=== PATIENT | female | born 1960 | race Caucasian/White ===

== ENCOUNTER → 2016-05-23 | Outpatient (CLI) | payer OTHER | END | disposition home or self-care (01) | LOC: C.PAPS 10:32 | PROVIDERS: ATTEND Obstetrics & Gynecology | DX: Z12.4 Encounter for screening for malignant neoplasm of cervix (principal) ==

== ENCOUNTER → 2016-09-25 | Outpatient (CLI) | payer OTHER ==
--- NOTE | 2016-09-25 11:37 | DIAGNOSTIC IMAGING REPORT ---
PELVIC ULTRASOUND, TRANSABDOMINAL AND TRANSVAGINAL HISTORY: N91.2 Amenorrhea [id number] COMPARISON: None. FINDINGS: Uterus: 9.1 x 5.1 x 4.5 cm. A few nabothian cysts. Endometrial stripe: Measures between 6 and 7 mm in thickness. Right ovary: Obscured by overlying bowel gas. Left ovary: Obscured by overlying bowel gas. Miscellaneous:No pelvic free fluid. IMPRESSION: 1. The endometrial stripe measures between 6 and 7 mm in thickness. This would be considered abnormal if the patient is postmenopausal. Gynecologic consultation recommended. 2. The ovaries were obscured by overlying bowel gas Electronically signed by: Heath Lopez M.D. 09/25/2016 11:36 AM Dictated Date/Time: 09/25/2016 11:34 AM
--- NOTE | 2016-09-26 07:01 | DIAGNOSTIC IMAGING REPORT ---
PELVIC ULTRASOUND, TRANSABDOMINAL AND TRANSVAGINAL HISTORY: N91.2 Amenorrhea [id number] COMPARISON: None. FINDINGS: Uterus: 9.1 x 5.1 x 4.5 cm. A few nabothian cysts. Endometrial stripe: Measures between 6 and 7 mm in thickness. Right ovary: Obscured by overlying bowel gas. Left ovary: Obscured by overlying bowel gas. Miscellaneous:No pelvic free fluid. IMPRESSION: 1. The endometrial stripe measures between 6 and 7 mm in thickness. This would be considered abnormal if the patient is postmenopausal. Gynecologic consultation recommended. 2. The ovaries were obscured by overlying bowel gas Electronically signed by: Heath Lopez M.D. 09/25/2016 11:36 AM Dictated Date/Time: 09/25/2016 11:34 AM
== END | disposition home or self-care (01) ==
LOC: C.ULTR 10:44
PROVIDERS: ATTEND Nurse Practitioner
DX: N91.2 Amenorrhea, unspecified (principal); N88.8 Other specified noninflammatory disorders of cervix uteri

== ENCOUNTER → 2016-10-08 | Outpatient (CLI) | payer OTHER | END | disposition home or self-care (01) | LOC: C.LAB1850 12:41 | PROVIDERS: ATTEND Physician Assistant | DX: Z00.00 Encounter for general adult medical examination without abnormal findings (principal) ==

== ENCOUNTER → 2016-10-17 | Outpatient (CLI) | payer OTHER ==
[2016-10-17 17:20] LABS: ALT/SGPT 31 U/L (12-78); BLOOD UREA NITROGEN 11 mg/dl (7-18); BUN/CREATININE RATIO 10.2 (10-20); CALCIUM 9.2 mg/dl (8.5-10.1); CARBON DIOXIDE 21 mmol/L (21-32); CHLORIDE 110 mmol/L (98-107); CHOLESTEROL 163 mg/dl (0-200); GLUCOSE 87 mg/dl (70-99); SODIUM 141 mmol/L (136-145); TRIGLYCERIDES 202 mg/dl (0-150); VERY LOW DENSITY LIPOPROT CALC 40 mg/dl
[2016-10-17 17:30] LABS: ALKALINE PHOSPHATASE 125 U/L (45-117); AST/SGOT 17 U/L (15-37); CHOLESTEROL/HDL RATIO 4.7; HDL CHOLESTEROL 35 mg/dl; LDL CHOLESTEROL CALCULATED 88 mg/dl
== END | disposition home or self-care (01) ==
LOC: C.LABBFT 14:35
PROVIDERS: ATTEND Nurse Practitioner
DX: Z11.59 Encounter for screening for other viral diseases (principal); E78.00 Pure hypercholesterolemia, unspecified; E07.9 Disorder of thyroid, unspecified

== ENCOUNTER → 2016-10-30 | Outpatient (CLI) | payer OTHER | END | disposition home or self-care (01) | LOC: C.PATHSPEC 16:03 | PROVIDERS: ATTEND Obstetrics & Gynecology | DX: R93.8 Abnormal findings on diagnostic imaging of other specified body structures (principal) ==

== ENCOUNTER → 2017-02-27 | Outpatient (CLI) | payer OTHER ==
--- NOTE | 2017-02-27 15:37 | MAMMOGRAPHY REPORT ---
BILATERAL DIGITAL SCREENING MAMMOGRAM TOMOSYNTHESIS WITH CAD: 02/27/2017 CLINICAL HISTORY: Routine screening. Patient has no complaints. TECHNIQUE: Breast tomosynthesis in addition to standard 2D mammography was performed. Current study was also evaluated with a Computer Aided Detection (CAD) system. COMPARISON: Comparison is made to exams dated: 02/22/2016 mammogram, 02/02/2015 mammogram, 12/30/2013 mammogram, 11/22/2012 mammogram, 11/13/2011 mammogram, and 10/11/2010 mammogram - [facility] enter. BREAST COMPOSITION: The tissue of both breasts is almost entirely fatty. FINDINGS: No suspicious masses, calcifications, or areas of architectural distortion are noted in ei ther breast. There has been no significant interval change compared to prior exams. IMPRESSION: ACR BI-RADS CATEGORY 1: NEGATIVE There is no mammographic evidence of malignancy. A 1 year screening mammogram is recommended. The pa tient will receive written notification of the results. Approximately 10% of breast cancers are not detected with mammography. A negative mammographic report should not delay biopsy if a clinically suggestive mass is present. Mary Cobos M.D. /:02/27/2017 14:42:59 Pumper Gager: Alka DESIR(Rita)(Tiffani)([place]), [facility] letter sent: Normal 1/2 BI-RADS Code: ACR BI-RADS Category 1: Negative
== END | disposition home or self-care (01) ==
LOC: C.MAMM 13:57
PROVIDERS: ATTEND Nurse Practitioner
DX: Z12.31 Encounter for screening mammogram for malignant neoplasm of breast (principal)

== ENCOUNTER → 2017-06-02 | Day surgery (SDC) | payer OTHER ==
[2017-05-08 14:08] VITALS: Ht 162.6 cm; Wt 134.1 kg
[~2017-06-02] VITALS: Ht 162.6 cm; Wt 134.1 kg
[~2017-06-02] MED LIST: ALBU18002 INH; AMIT100T2 PO; BUPR200T2 PO; CEFAZOLIN 3000MG IV PUSH 22.5 ML IV SCH; CLON1TAB3 PO; CLR10 PO; FLUT0.15 NAE; LACTATED RINGER'S 1000ML 1,000 ML IV SCH; LOSA50TA6 PO; LPT10 PO; NXM/40 PO; RISP1TAB68 PO; TOPI100T20 PO
== END | disposition home or self-care (01) ==
LOC: EDSTATUS 07:00 → C.PAT 14:04
PROVIDERS: ATTEND Orthopaedic Surgery
DX: M65.321 Trigger finger, right index finger (principal); Z53.09 Procedure and treatment not carried out because of other contraindication

== ENCOUNTER → 2017-11-06 | Outpatient (CLI) | payer OTHER ==
[~2017-11-06] MED LIST changes: -CEFAZOLIN 3000MG IV PUSH 22.5 ML IV SCH; -CLON1TAB3 PO; +CLON1TAB5 PO; -LACTATED RINGER'S 1000ML 1,000 ML IV SCH
[2017-11-06 17:47] LABS: BASO % 0.1 %; BASO ABS # 0.01 K/uL (0-0.2); EOS % 1.8 %; EOS ABS # 0.16 K/uL (0-0.5); HEMATOCRIT 41.1 % (37-47); IG# 0.02 K/uL (0.00-0.02); LYMPH % 27.6 %; LYMPH ABS # 2.46 K/uL (1.2-3.4); MEAN CELL VOLUME 89.5 fL (80-100); MEAN CORPUSCULAR HEMOGLOBIN 28.3 pg (25-34); MEAN CORPUSCULAR HGB CONC 31.6 g/dl (32-36); MEAN PLATELET VOLUME 10.5 fL (7.4-10.4); MONO % 7.1 %; MONO ABS # 0.63 K/uL (0.11-0.59); NEUT % 63.2 %; NEUT ABS # 5.63 K/uL (1.4-6.5); PLATELET COUNT 263 K/uL (130-400); RED CELL DISTRIBUTION WIDTH CV 14.3 % (11.5-14.5); RED CELL DISTRIBUTION WIDTH SD 46.5 fL (36.4-46.3); WHITE BLOOD COUNT 8.91 K/uL (4.8-10.8)
[2017-11-06 18:14] LABS: ALBUMIN 3.6 gm/dl (3.4-5.0); ALKALINE PHOSPHATASE 115 U/L (45-117); ALT/SGPT 35 U/L (12-78); AST/SGOT 19 U/L (15-37); BLOOD UREA NITROGEN 12 mg/dl (7-18); CALCIUM 8.7 mg/dl (8.5-10.1); CARBON DIOXIDE 24 mmol/L (21-32); CHOLESTEROL 161 mg/dl (0-200); CREATININE 1.12 mg/dl (0.60-1.20); GLUCOSE 89 mg/dl (70-99); LDL CHOLESTEROL CALCULATED 87 mg/dl; POTASSIUM 4.3 mmol/L (3.5-5.1); SODIUM 139 mmol/L (136-145); TOTAL PROTEIN 7.3 gm/dl (6.4-8.2)
== END | disposition home or self-care (01) ==
LOC: C.LABBFT 12:05
PROVIDERS: ATTEND Nurse Practitioner
DX: Z51.81 Encounter for therapeutic drug level monitoring (principal); Z79.899 Other long term (current) drug therapy

== ENCOUNTER 2024-07-06 17:47 | Inpatient (IN) ==
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
[2024-07-06] MEDS ORDERED: methylPREDNISolone 10 mg/mL (For Ped Dose < 7mg) IV STA (17:59)
[2024-07-06] MEDS: methylPREDNISolone 125 MG/2 ML VIAL IV STA ×2 (18:21→22:06)
--- NOTE | 2024-07-06 18:24 | XRay Report ---
EXAM: Radiograph of the Chest 1 View INDICATION: Dyspnea TECHNIQUE: Frontal view of the chest. COMPARISON: 10/02/2021 FINDINGS: Lungs and pleural spaces: No consolidation or pulmonary edema. No pleural effusion or pneumothorax. Heart: Shape and configuration within normal limits allowing for technique. Mediastinum: Normal contour. Bones/joints: No fracture, erosion or dislocation. Soft tissues: No abnormality noted. No radiopaque foreign body noted. Vasculature: Shallow inspiration with mild vascular crowding. Upper abdomen: No abnormality noted. IMPRESSION: No acute cardiopulmonary disease. ACT 112: N/A Electronically signed by Oma Bojorquez 07-06-2024 6:20 PM
[2024-07-06] MEDS: ALBUT/IPRATROP 3MG/0.5MG NEB 3 ML VIAL INH STA (18:25)
[2024-07-06 18:28] LABS: Hematocrit (blood only) 41.5 % (37.0-47.0); Hemoglobin 13.3 g/dl (12.0-16.0); Mean Corpuscular Hemoglobin 28.2 pg (25.0-34.0); Mean Corpuscular Volume 87.9 fL (80.0-100.0); Mean Platelet Volume 9.8 fL (9.4-12.4); Platelet Count 178 K/uL (130-400); RDW Coefficient of Variation 13.9 % (11.5-14.5); RDW Standard Deviation 45.1 fL (36.4-46.3); Red Blood Count 4.72 M/uL (4.20-5.40); White Blood Count 5.12 K/ul (4.8-10.8)
[2024-07-06 18:40] LABS: Albumin Globulin Ratio 1.2 (0.9-2); Albumin Level 4.1 gm/dl (3.4-5.0); BUN Creatinine Ratio 10.3 (10-20); Bilirubin,Total 1.2 mg/dl (0.2-1.0); Creatinine Clr Calc Pharmacy 52.9 ml/min; Globulin 3.3 gm/dl (2.5-4.0); Total Protein 7.4 gm/dl (6.0-8.3)
[2024-07-06 18:46] LABS: Troponin I High Sensitivity 12.3 pg/ml (0-14)
[2024-07-06 18:56] LABS: Prothrombin Time 11.1 Seconds (9.0-12.0)
[2024-07-06 19:27] LABS: Basophils # (auto) 0.01 K/uL (0.00-0.20); Basophils % (auto) 0.2 %; Eosinophils # (auto) 0.01 K/uL (0.00-0.50); Eosinophils % (auto) 0.2 %; Immature Granulocytes # (auto) 0.02 K/uL (0.01-0.20); Immature Granulocytes % (auto) 0.4 %; Lymphocytes # (auto) 2.85 K/uL (1.20-3.40); Lymphocytes % (auto) 55.7 %; Monocytes # (auto) 0.62 K/uL (0.11-0.59); Monocytes % (auto) 12.1 %; Neutrophils # (auto) 1.61 K/uL (1.40-6.50); Neutrophils % (auto) 31.4 %
[2024-07-06 19:46] LABS: Adenovirus PCR Not Detected (NotDetected); Bordetella parapertussis PCR Not Detected (NotDetected); Bordetella pertussis PCR Not Detected (NotDetected); Chlamydia pneumoniae PCR Not Detected (NotDetected); Coronavirus 229E PCR Not Detected (NotDetected); Coronavirus CoV-2 (COVID19)PCR Not Detected (NotDetected); Coronavirus HKU1 PCR Not Detected (NotDetected); Coronavirus NL63 PCR Not Detected (NotDetected); Coronavirus OC43PCR Not Detected (NotDetected); Human Metapneumovirus PCR Not Detected (NotDetected); Influenza A (H1 2009) PCR DETECTED (NotDetected); Influenza B PCR Not Detected (NotDetected); Mycoplasma pneumoniae PCR Not Detected (NotDetected); Parainfluenza Virus 1 PCR Not Detected (NotDetected); Parainfluenza Virus 2 PCR Not Detected (NotDetected); Parainfluenza Virus 3 PCR Not Detected (NotDetected); Parainfluenza Virus 4 PCR Not Detected (NotDetected); Respiratory Syncytial VirusPCR Not Detected (NotDetected); Rhinovirus/Enterovirus PCR Not Detected (NotDetected)
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
[2024-07-06] MEDS ORDERED: ALBUT/IPRATROP 3MG/0.5MG NEB 3 ML VIAL NEB PRN (20:30)
[2024-07-06 20:34] LABS: Magnesium 1.8 mg/dl (1.7-2.4)
[2024-07-06] MEDS: OSELTAMIVIR PHOSPHATE 75 MG CAP PO STA (21:12)
[2024-07-06] MEDS: ALBUT/IPRATROP 3MG/0.5MG NEB 3 ML VIAL NEB SCH (21:12)
[2024-07-06] MEDS: MAGNESIUM SULFATE / D5W 1 GM/100 ML BAG IV ONE (21:16)
[2024-07-06] MEDS ORDERED: MELATONIN 3 MG TAB PO PRN (22:30)
[2024-07-06] MEDS ORDERED: ACETAMINOPHEN 325 MG TAB PO PRN (22:30)
[2024-07-06] MEDS ORDERED: ONDANSETRON INJ 2 MG/ML 2 ML VIAL IV PRN (22:30)
[2024-07-06] MEDS: LACTATED RINGER'S 1,000 ML IV SCH (22:38)
--- NOTE | 2024-07-06 23:14 | CT Scan Report ---
Exam(s): CT CHEST Without Contrast EXAM: CT Chest Without Intravenous Contrast CLINICAL HISTORY: Reason for exam: hypoxia'. TECHNIQUE: Axial computed tomography images of the chest without intravenous contrast. CTDI is 28.14 mGy and DLP is 951.03 mGy-cm. Automated exposure control was utilized for the study. A dose lowering technique was utilized adhering to the principles of ALARA. COMPARISON: No relevant prior studies available. FINDINGS: Lungs: No consolidation or interstitial edema. Pleural space: No pleural effusion or pneumothorax. Heart: Unremarkable. Bones/joints: No acute findings. Soft tissues: Unremarkable. Vasculature: Unremarkable. Lymph nodes: Unremarkable. IMPRESSION: No acute abnormality within the chest. Electronically signed by: Franky Mello MD 07/06/24 23:13 PM
[2024-07-07] MEDS: GABAPENTIN 600 MG TAB PO SCH (00:26)
[2024-07-07] MEDS: ATORVASTATIN 20 MG TAB PO SCH (00:27)
[2024-07-07] MEDS: hydrOXYzine HCl 25 MG TAB PO SCH (00:27)
[2024-07-07] MEDS: IMIPRAMINE HCL 50 MG TAB PO SCH (00:27)
[2024-07-07] MEDS: OLANZapine 5 MG TABLET PO SCH (00:28)
[2024-07-07] MEDS: OXYBUTYNIN CHLORIDE XL 5 MG TABCR PO SCH (00:28)
[2024-07-07] MEDS: LORazepam 1 MG TAB PO SCH (00:28)
[2024-07-07] MEDS: DOCUSATE SODIUM 100 MG CAP PO PRN (00:28)
[2024-07-07] MEDS: DOXYCYCLINE HYCLATE 100 MG in DEXTROSE 5% MINI-B 100 ML IV STA (00:32)
[2024-07-07] MEDS: PANTOprazole 40 MG TAB PO SCH (00:36)
[2024-07-07 06:26] LABS: Immature Granulocytes # (auto) 0.01 K/uL (0.01-0.20); Immature Granulocytes % (auto) 0.5 %; Lymphocytes # (auto) 0.86 K/uL (1.20-3.40); Lymphocytes % (auto) 40.8 %; Mean Corpuscular Hemoglobin 28.4 pg (25.0-34.0); Mean Corpuscular Hgb Conc 32.5 g/dL (32.0-36.0); Mean Corpuscular Volume 87.5 fL (80.0-100.0); Mean Platelet Volume 9.3 fL (9.4-12.4); Monocytes # (auto) 0.09 K/uL (0.11-0.59); Monocytes % (auto) 4.3 %; Neutrophils # (auto) 1.15 K/uL (1.40-6.50); Neutrophils % (auto) 54.4 %; Platelet Count 158 K/uL (130-400); RDW Coefficient of Variation 13.8 % (11.5-14.5); RDW Standard Deviation 44.5 fL (36.4-46.3); Red Blood Count 4.57 M/uL (4.20-5.40); White Blood Count 2.11 K/ul (4.8-10.8)
[2024-07-07 06:51] LABS: BUN Creatinine Ratio 13.9 (10-20); Calcium 8.7 mg/dl (8.6-10.3); Creatinine Clr Calc Pharmacy 66.7 ml/min; Potassium 4.1 mmol/L (3.5-5.1)
[2024-07-07] MEDS: OSELTAMIVIR PHOSPHATE 75 MG CAP PO SCH (08:14)
[2024-07-07] MEDS: methylPREDNISolone 40 MG in SYRINGE 0 ML IV SCH (09:17)
[2024-07-07] MEDS: DOXYCYCLINE HYCLATE 100 MG in DEXTROSE 5% MINI-B 100 ML IV SCH (12:06)
--- NOTE | 2024-07-07 12:12 | Electrocardiogram Report ---
Test Reason : Blood Pressure : */* mmHG Vent. Rate : 95 BPM Atrial Rate : 95 BPM P-R Int : 140 ms QRS Dur : 72 ms QT Int : 342 ms P-R-T Axes : 7 17 50 degrees QTcB Int : 429 ms Normal sinus rhythm Poor R wave progression, consider anterior MD vs. lead placement vs. LVH Abnormal ECG When compared with ECG of 25-Apr-2003 00:55, No significant change was found Confirmed by Johnie Sahu ([id number]) on 07/07/2024 12:11:46 PM Referred By: REFERRED SELF Confirmed By: Johnie Sahu
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
[2024-07-08 08:02] LABS: Basophils # (auto) 0.01 K/uL (0.00-0.20); Basophils % (auto) 0.1 %; Hematocrit (blood only) 40.2 % (37.0-47.0); Hemoglobin 13.1 g/dl (12.0-16.0); Immature Granulocytes # (auto) 0.02 K/uL (0.01-0.20); Immature Granulocytes % (auto) 0.2 %; Lymphocytes # (auto) 3.08 K/uL (1.20-3.40); Lymphocytes % (auto) 35.5 %; Mean Corpuscular Hemoglobin 28.5 pg (25.0-34.0); Mean Corpuscular Hgb Conc 32.6 g/dL (32.0-36.0); Mean Corpuscular Volume 87.4 fL (80.0-100.0); Mean Platelet Volume 9.6 fL (9.4-12.4); Monocytes # (auto) 0.69 K/uL (0.11-0.59); Monocytes % (auto) 7.9 %; Neutrophils # (auto) 4.88 K/uL (1.40-6.50); Neutrophils % (auto) 56.3 %; Platelet Count 182 K/uL (130-400); RDW Coefficient of Variation 13.8 % (11.5-14.5); RDW Standard Deviation 44.2 fL (36.4-46.3); White Blood Count 8.68 K/ul (4.8-10.8)
[2024-07-08 08:10] LABS: BUN Creatinine Ratio 18.5 (10-20); Calcium 8.8 mg/dl (8.6-10.3); Creatinine Clr Calc Pharmacy 62.6 ml/min; Magnesium 2.1 mg/dl (1.7-2.4); Potassium 4.4 mmol/L (3.5-5.1)
[2024-07-08] MEDS: guaiFENesin/DEXTROM SYRUP 100MG/10MG 5ML UDC PO PRN (08:15)
[2024-07-08 11:28] VITALS: BP 113/69; TEMP 97.7
--- NOTE | 2024-07-08 14:39 | Discharge Summary ---
Discharge Summary Date of Service July 08, 2024 Principal Dx & Hospital Course #1 = Principal Diagnosis Admission HPI Per Admitting Provider Patient is a 63-year-old female with past medical history of GERD, osteoarthritis, obesity, hyperlipidemia, depression, vestibular schwannoma s/p radioactive surgery. she was referred to the ED from [facility] urgent care after she was found to be hypoxic and given a nebulizer. She was found to be 85% on room air in the ED and transition to 4L NC. She tested positive for influenza A and was also found to have mild renal insufficiency with creatinine increased from 1.17-1.55. She is being admitted for hypoxia, renal insufficiency, to have IV steroids, DuoNebs, IV fluids, and Tamiflu. Patient seen at bedside with her son present. She stated on Thursday she developed a dry cough which sometimes results in midsternal chest pain during extreme coughing fits and lightheadedness. She also endorses a headache that comes and goes. She originally denied dyspnea however did endorse having to stop while going up her 3 flights of stairs to her apartment today because she could not catch her breath. She denies any abdominal symptoms, nausea, vomiting, diarrhea, dysuria, difficulty urinating. She denies any sick contacts with influenza A however her son was feeling a little bit sick over the past week. She does not use nicotine products. She does not use oxygen at baseline or have a history of previous lung disorders including but not limited to COPD and asthma. She did take her morning medications but is due for her evening medications, will order on admission. She wishes to be full code. She stated she is feeling a little bit better after treatment in the ED. Patient's hypoxia noted to be worsening increase flow to 6L NC. Additional 40 Mg IV Solu-Medrol ordered. Doxycycline IV began. Chest CT ordered. Discharge Plan Discharge Items Patient Disposition: Home - Self-Care Reason For Visit: HYPOXIA, INFLUENZA A, RENAL INSUFFICIENCY Discharge Diagnosis: Acute hypoxic respiratory failure secondary to influenza A Activity: Resume your previous activity Non-emergency contact: Primary Care Provider Call non-emergency contact if: you have any medication questions and your symptoms worsen Follow-up/Referrals: Bibi Lazar CRNP [Primary Care Provider] - 07/18/24 2:00 pm Diet: Regular Addtl Attending Provider Instructions: Follow up with primary care in 5-7 days Pending Studies at Discharge: No Stand-Alone Forms: My [facility], Smoking Cessation Medications and DC Order Prescriptions: New oseltamivir [Tamiflu] 75 mg Capsule 75 mg PO BID Qty: 6 0RF albuterol sulfate 90 mcg/actuation HFA aerosol inhaler 1 inh inhalation Q6H PRN (Reason: shortness of breath or wheezing) Qty: 6.7 0RF Continued atorvastatin 20 mg tablet 20 mg PO HS Qty: 90 3RF esomeprazole magnesium [Nexium] 40 mg capsule,delayed release(DR/EC) 40 mg PO HS Qty: 90 3RF imipramine HCl 50 mg tablet 50 mg PO HS cetirizine 5 mg tablet 5 mg PO DAILY PRN (Reason: Congestion) olanzapine [Zyprexa] 5 mg tablet 5 mg PO HS hydroxyzine HCl 25 mg tablet 25 mg PO HS simethicone [Gas Relief (simethicone)] 125 mg capsule 125 mg PO DAILY PRN (Reason: abdominal distention) Qty: 30 5RF gabapentin 600 mg tablet 600 mg PO HS lorazepam 1 mg tablet 1 mg PO BID Rx Instructions: 1 mg PO May take 2-1/2 tablets total during the day PRN; Metamucil 3.4 gram/5.4 gram Powder 2 tbsp PO HS hydrocortisone [Proctosol HC] 2.5 % cream with perineal applicator 1 applic topical DAILY PRN (Reason: hemorrhoids) Rx Instructions: Apply a small amount to external hemorrhoids topically daily PRN; oxybutynin chloride 5 mg tablet extended release 24hr 5 mg PO HS cholecalciferol (vitamin D3) 1,250 mcg (50,000 unit) capsule 50,000 unit PO WK Rx Instructions: WEDNESDAYS No Action losartan 100 mg tablet 100 mg PO HS Qty: 90 3RF Discharge Orders: Discharge Order (Routine); Ordered 07/08/24 Ordered By: Christal Grady Admission Data Admit Date/Time: 07/06/24 20:48 Attending Provider: Christal Grady Admit Provider: Ilir Matnilla Primary Care Provider: Bibi Lazar Other Providers: Ilir Mantilla Other Interventions: Discharge Summary Assessment (RN) Last Done: 07/08/24 13:55 Hospital Stay Data Consultations 07/06/24 20:07 ED Decision to Admit Stat Diagnostic Imagining Performed 07/06/24 21:46 CT chest diagnostic wo con Stat Pending Results Patient Have Any Pending Studies at Discharge: No Discharge Instructions Given to Patient (Per Discharging Provider) Follow up with primary care in 5-7 days Coding
--- NOTE | 2024-07-08 14:49 | Discharge Summary ---
Discharge Summary Date of Service July 08, 2024 Principal Dx & Hospital Course #1 = Principal Diagnosis (1) Acute hypoxic respiratory failure: (2) Influenza A: (3) Acute renal insufficiency: Plan Patient is a 63-year-old female with past medical history of GERD, osteoarthritis, obesity, hyperlipidemia, depression, vestibular schwannoma s/p radioactive surgery. she was referred to the ED from [facility] urgent care after she was found to be hypoxic and given a nebulizer. She was found to be 85% on room air in the ED and transition to 4L NC. She tested positive for influenza A and was also found to have mild renal insufficiency with creatinine increased from 1.17-1.55. She is being admitted for hypoxia, renal insufficiency, to have IV steroids, DuoNebs, IV fluids, and Tamiflu. Acute hypoxic respiratory failure secondary to influenza Improved after IV steroids, nebs, supplemental O2 and Tamiflu Patient ambulated on RA prior to discharge without desaturating She was discharged on a course of Tamilflu and PRN Albuterol inhaler JOHN Improved s/p IVF BP remained controlled without meds - recommended to restart Losartan 2 days after checking BP Chronic stable diagnoses: elevated total bilirubin1.2 on admission, appears to be baseline, follow-up with PCP GERDcontinue PPI HLDcontinue atorvastatin Osteoarthritis/chronic paincontinue gabapentin at bedtime Anxiety/depressioncontinue hydroxyzine, imipramine, lorazepam, olanzapine vestibular schwannomafollows with [facility] heme/oncology s/p radioactive surgery in 2018, MRI every 2 years Discharged home Admission HPI Per Admitting Provider Patient is a 63-year-old female with past medical history of GERD, osteoarthritis, obesity, hyperlipidemia, depression, vestibular schwannoma s/p radioactive surgery. she was referred to the ED from [facility] urgent care after she was found to be hypoxic and given a nebulizer. She was found to be 85% on room air in the ED and transition to 4L NC. She tested positive for influenza A and was also found to have mild renal insufficiency with creatinine increased from 1.17-1.55. She is being admitted for hypoxia, renal insufficiency, to have IV steroids, DuoNebs, IV fluids, and Tamiflu. Patient seen at bedside with her son present. She stated on Thursday she developed a dry cough which sometimes results in midsternal chest pain during extreme coughing fits and lightheadedness. She also endorses a headache that comes and goes. She originally denied dyspnea however did endorse having to stop while going up her 3 flights of stairs to her apartment today because she could not catch her breath. She denies any abdominal symptoms, nausea, vomiting, diarrhea, dysuria, difficulty urinating. She denies any sick contacts with influenza A however her son was feeling a little bit sick over the past week. She does not use nicotine products. She does not use oxygen at baseline or have a history of previous lung disorders including but not limited to COPD and asthma. She did take her morning medications but is due for her evening medications, will order on admission. She wishes to be full code. She stated she is feeling a little bit better after treatment in the ED. Patient's hypoxia noted to be worsening increase flow to 6L NC. Additional 40 Mg IV Solu-Medrol ordered. Doxycycline IV began. Chest CT ordered. Discharge Exam The patient is awake, alert and oriented 3, well developed and well nourished, normocephalic and atraumatic, in no acute distress. Non-toxic appearing. HEENT- EOMI, mucous membranes dry. Hearing grossly intact. Heart-normal S1 and S2. No murmurs, rubs or gallops. Lungs-clear bilaterally, no respiratory distress, no accessory muscle use. Abdomen-normal bowel sounds and soft. No ascites noted. Non-tender. Extremities- no clubbing, cyanosis, or edema. Discharge Plan Discharge Items Patient Disposition: Home - Self-Care Reason For Visit: HYPOXIA, INFLUENZA A, RENAL INSUFFICIENCY Discharge Diagnosis: Acute hypoxic respiratory failure secondary to influenza A Activity: Resume your previous activity Non-emergency contact: Primary Care Provider Call non-emergency contact if: you have any medication questions and your symptoms worsen Follow-up/Referrals: Bibi Lazar CRNP [Primary Care Provider] - 07/18/24 2:00 pm Diet: Regular Addtl Attending Provider Instructions: Follow up with primary care in 5-7 days Pending Studies at Discharge: No Stand-Alone Forms: [employer], Smoking Cessation Medications and DC Order Prescriptions: New oseltamivir [Tamiflu] 75 mg Capsule 75 mg PO BID Qty: 6 0RF albuterol sulfate 90 mcg/actuation HFA aerosol inhaler 1 inh inhalation Q6H PRN (Reason: shortness of breath or wheezing) Qty: 6.7 0RF Continued atorvastatin 20 mg tablet 20 mg PO HS Qty: 90 3RF esomeprazole magnesium [Nexium] 40 mg capsule,delayed release(DR/EC) 40 mg PO HS Qty: 90 3RF imipramine HCl 50 mg tablet 50 mg PO HS cetirizine 5 mg tablet 5 mg PO DAILY PRN (Reason: Congestion) olanzapine [Zyprexa] 5 mg tablet 5 mg PO HS hydroxyzine HCl 25 mg tablet 25 mg PO HS simethicone [Gas Relief (simethicone)] 125 mg capsule 125 mg PO DAILY PRN (Reason: abdominal distention) Qty: 30 5RF gabapentin 600 mg tablet 600 mg PO HS lorazepam 1 mg tablet 1 mg PO BID Rx Instructions: 1 mg PO May take 2-1/2 tablets total during the day PRN; Metamucil 3.4 gram/5.4 gram Powder 2 tbsp PO HS hydrocortisone [Proctosol HC] 2.5 % cream with perineal applicator 1 applic topical DAILY PRN (Reason: hemorrhoids) Rx Instructions: Apply a small amount to external hemorrhoids topically daily PRN; oxybutynin chloride 5 mg tablet extended release 24hr 5 mg PO HS cholecalciferol (vitamin D3) 1,250 mcg (50,000 unit) capsule 50,000 unit PO WK Rx Instructions: WEDNESDAYS No Action losartan 100 mg tablet 100 mg PO HS Qty: 90 3RF Discharge Orders: Discharge Order (Routine); Ordered 07/08/24 Ordered By: Christal Grady Admission Data Admit Date/Time: 07/06/24 20:48 Attending Provider: Christal Grady Admit Provider: Ilir Mantilla Primary Care Provider: Bibi Lazar Other Providers: Ilir Mantilla Other Interventions: Discharge Summary Assessment (RN) Last Done: 07/08/24 13:55 Hospital Stay Data Consultations 07/06/24 20:07 ED Decision to Admit Stat Diagnostic Imagining Performed 07/06/24 21:46 CT chest diagnostic wo con Stat Pending Results Patient Have Any Pending Studies at Discharge: No Discharge Instructions Given to Patient (Per Discharging Provider) Follow up with primary care in 5-7 days Total Time Total Time Spent Total Time Spent (In Minutes): 35 min Coding Level of Care Code 67013 INP/OBS DISCH >30 MIN Diagnoses Acute hypoxic respiratory failure J96.01 Influenza A J10.1 Acute renal insufficiency N28.9
[2024-07-08 15:13] VITALS: PULSE 94; RESP 18; O2SAT 91
== END 2024-07-08 16:01 | disposition home or self-care (01) | DRG 193 ==
LOC: SUATTDRO → ED 17:47 → SUATTDRO 20:48 → 2W 20:48

== ENCOUNTER 2025-02-22 10:18 | Observation (INO) ==
[2025-02-22 11:02] LABS: Hematocrit (blood only) 38.0 % (37.0-47.0); Hemoglobin 12.4 g/dL (12.0-16.0); Immature Granulocytes # (auto) 0.03 K/uL (0.01-0.20); Immature Granulocytes % (auto) 0.4 %; Mean Corpuscular Hemoglobin 28.7 pg (25.0-34.0); Mean Corpuscular Volume 88.0 fL (80.0-100.0); Platelet Count 194 K/uL (130-400); RDW Standard Deviation 44.2 fL (36.4-46.3); Red Blood Count 4.32 M/uL (4.20-5.40); White Blood Count 7.62 K/ul (4.8-10.8)
--- NOTE | 2025-02-22 11:18 | XRay Report ---
XR chest 1V portable HISTORY: 64 years-old Female weakness acute weakness COMPARISON: AP view of the chest TECHNIQUE: AP view of the chest FINDINGS: Cardiac silhouette is enlarged. The patient is mildly rotated. No pneumothorax, pleural effusion or o vert pulmonary edema. Minimal bibasilar subsegmental atelectasis. Bones of the chest appear grossly i ntact. Atherosclerosis of the aorta. IMPRESSION: No acute process of the chest. ACT 112: Negative or not required by law. The above report was generated using voice recognition software. It may contain grammatical, syntax o r spelling errors. Electronically signed by: Elijah Solano M.D. 02/22/2025 11:17 AM
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
[2025-02-22 12:33] LABS: Albumin Level 3.5 gm/dl (3.4-5.0); Anion Gap 6.0 (3-11); Bilirubin,Total 1.6 mg/dl (0.2-1.0); Calcium 9.3 mg/dl (8.6-10.3); Carbon Dioxide 28.0 mmol/L (21-32); Chloride 104.0 mmol/L (98-107); Potassium 4.2 mmol/L (3.5-5.1); Sodium 138.0 mmol/L (136-145)
[2025-02-22 12:39] LABS: Alanine Aminotransferase 20.0 U/L (7-52); Albumin Globulin Ratio 1.2 (0.9-2); Alkaline Phosphatase 105.0 U/L (34-104); Blood Urea Nitrogen 16.0 mg/dl (6-23); Creatinine Clr Calc Pharmacy 71.0 ml/min; Globulin 2.9 gm/dl (2.5-4.0); Glucose 106.0 mg/dl (70-99(Fasting)); Total Protein 6.4 gm/dl (6.0-8.3)
[2025-02-22 12:44] LABS: Thyroid Stimulating Hormone 1.435 uIu/ml (0.300-4.500)
[2025-02-22 12:57] LABS: Influenza A virus by PCR Negative (Neg); Influenza B virus by PCR Negative (Neg); SARS CoV2 RNA(COVID-19) Ceph NEGATIVE (Negative)
[2025-02-22] MEDS: OPTIRAY 320 125ml IV ONE (13:19)
--- NOTE | 2025-02-22 13:54 | CT Scan Report ---
CT ANGIOGRAM OF THE CHEST CLINICAL HISTORY: Hypoxia. Evaluate for pulmonary embolus. COMPARISON STUDY: Chest radiograph performed earlier today. Chest CT November 16, 2024. TECHNIQUE: Following the IV administration of 119 cc of Optiray 320, CT angiogram of the chest was pe rformed from the upper abdomen to the thoracic inlet utilizing the pulmonary embolus protocol. Images are reviewed in the axial, sagittal, and coronal planes. 3-D MIPS images are created and assessed. I V contrast was administered without complication. A dose lowering technique was utilized adhering to the principles of ALARA. CT DOSE: 792.15 mGy.cm FINDINGS: No pulmonary emboli are identified. There is no thoracic aortic dissection. Size of the hea rt is normal. There is no pericardial effusion. No enlarged axillary, mediastinal or hilar lymph node s are present. Elevation of the right hemidiaphragm is unchanged. Subpleural lower lobe opacities rep resent atelectasis. There is no consolidation to suggest pneumonia. There is no pneumothorax or pleur al effusion. No pulmonary nodules are present. Central airways are patent. The gallbladder is surgica lly absent. IMPRESSION: 1. No pulmonary emboli identified. 2. No consolidation to suggest pneumonia. Subpleural opacities consistent with atelectasis. No change in appearance of the chest since CT of November 16, 2024. ACT 112: Negative or not required by law. Electronically signed by: Hemant Arredondo M.D. 02/22/2025 1:52 PM
[2025-02-22 14:14] LABS: Appearance Urine Turbid (Clear); Bacteria Urine Automated 4+ (None Seen); Cast Urine Automated 0-2 /lpf (0-2); Epithelial Cell Urine Auto >20 /hpf (0-2); Glucose Urine UA Negative (Negative); RBC Urine Automated 0-2 /hpf (0-2); WBC Urine Automated >50 /hpf (0-5)
[2025-02-22] MEDS: cefTRIAXone SODIUM 2,000 MG/50 ML BAG IV STA (15:20)
[2025-02-22] MEDS ORDERED: MAGNESIUM HYDROXIDE SUSP 30 ML UDC PO PRN (16:28)
[2025-02-22] MEDS ORDERED: ALUMINUM/MAGNESIUM SUSP 30 ML UDC PO PRN (16:28)
[2025-02-22] MEDS ORDERED: ACETAMINOPHEN 325 MG TAB PO PRN (16:28)
[2025-02-22] MEDS ORDERED: POLYETHYLENE (MIRALAX) 17 GM PACK PO PRN (16:28)
[2025-02-22] MEDS ORDERED: ONDANSETRON INJ 2 MG/ML 2 ML VIAL IV PRN (16:28)
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
[2025-02-22] MEDS ORDERED: LORazepam 1 MG TAB PO PRN (22:08)
[2025-02-22] MEDS: PRIMIDONE 50 MG TAB PO SCH (22:38)
[2025-02-22] MEDS: LOSARTAN POTASSIUM 50 MG TAB PO SCH (22:38)
[2025-02-22] MEDS: MICONAZOLE NITRATE POWDER 85 GM EXT PRN (22:38)
[2025-02-22] MEDS: ATORVASTATIN 20 MG TAB PO SCH (22:38)
[2025-02-22] MEDS: GABAPENTIN 600 MG TAB PO SCH (22:38)
[2025-02-22] MEDS: OXYBUTYNIN CHLORIDE XL 5 MG TABCR PO SCH (22:38)
[2025-02-22] MEDS: IMIPRAMINE HCL 50 MG TAB PO SCH (22:38)
[2025-02-23 08:04] LABS: Hematocrit (blood only) 38.1 % (37.0-47.0); Hemoglobin 12.4 g/dL (12.0-16.0); Mean Corpuscular Hemoglobin 28.8 pg (25.0-34.0); Mean Corpuscular Volume 88.4 fL (80.0-100.0); RDW Standard Deviation 45.0 fL (36.4-46.3); Red Blood Count 4.31 M/uL (4.20-5.40); White Blood Count 7.17 K/ul (4.8-10.8)
[2025-02-23 08:25] LABS: Anion Gap 6.0 (3-11); Blood Urea Nitrogen 14.0 mg/dl (6-23); Calcium 9.2 mg/dl (8.6-10.3); Carbon Dioxide 29.0 mmol/L (21-32); Chloride 104.0 mmol/L (98-107); Creatinine Clr Calc Pharmacy 68.0 ml/min; Glucose 91.0 mg/dl (70-99(Fasting)); Potassium 4.3 mmol/L (3.5-5.1); Sodium 139.0 mmol/L (136-145)
[2025-02-23] MEDS: ENOXAPARIN INJ 40 MG/0.4 ML SYR SQ SCH (08:44)
[2025-02-23 09:23] LABS: Immature Granulocytes # (auto) 0.02 K/uL (0.01-0.20); Immature Granulocytes % (auto) 0.3 %; Platelet Count 173 K/uL (130-400); Polychromasia 1+
--- NOTE | 2025-02-23 11:36 | XCELERA ---
[id number] \\[email or web address]\[email or web address]_[email or web address]\[id number].pdf
--- NOTE | 2025-02-23 13:10 | Hospitalist Progress Note ---
"Date of Service February 23, 2025 Assessment & Plan (1) Acute UTI: (2) Morbid obesity with BMI of 50.0-59.9, adult: (3) Lymphedema: (4) CKD (chronic kidney disease) stage 3, GFR 30-59 ml/min: (5) Hypertension: (6) Hyperlipidemia: (7) Bipolar disorder: (8) Anxiety: (9) Acid reflux: Plan Patient is a 64-year-old female with past medical history of bipolar disorder, hyperlipidemia, hypertension, vestibular schwannoma, impaired fasting glucose, essential tremor bilateral hands, chronic kidney disease stage III, lymphedema, and vitamin D deficiency that presented to the [facility] emergency department this morning status post with complaints of a mechanical fall. She has had complaints of generalized weakness and has been diagnosed with a UTI per emergency department workup. Lab work unremarkable in emergency department. ##UTI|weakness -admit to med/surg -CBC without leukocytosis -UA with 1+blood, 3+ leuks, >50WBCs, 4+ bacteria, UC pending -Ceftriaxone 2000mg IV in ED, continue inpatient IV Q24H for 3 total doses ##Reported low oxygen saturations not tachycardic, without f/c, with normal chest xray, no PE on chest CTA, endorses RENDON with climbing multiple flights of steps with no anginal equivalent symptoms -she is not on oxygen therapy at baseline at home -monitor SPO2 with vital signs -TTE with LVEF 60-65%, normal diastolic function, no significant valvular heart disease, mild triscupid regurg -possible sleep study in setting of BMI 51 ##HTN|HLD -cont ARB/statin ##Bipolar disorder|Anxiety -cont gabapentin, ativan, hydroxyzine, imipramine, olanzapine, valbenazine ##CKD stage 3 -Cr 1.20 -dose medication for eGFR trends ##Lymphedema -elevate legs at hs -compression stockings during waking hours ##GERD -cont home PPI DVT prophylaxis: Lovenox 40mg SQ QAM Diet: Heart healthy Disposition: full admission, PT/OT consult for rehab CODE STATUS: FULL CODE after lengthy discussion with patient regarding wishes Admission and Anticipated Discharge Date Admission Date: February 22, 2025 Subjective Patient sitting up this afternoon eating lunch. She has no complaints today. States she is looking forward to working with PT/OT. She is willing to go to short term rehab if needed upon discharge. 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 Review of Systems Review of Systems: All systems reviewed & are unremarkable except as noted in Subjective Physical Exam Physical Exam: GENERAL APPEARANCE: A&O. Sitting up in bed. NAD. SKIN: Normal color without rashes or lesions. Normal turgor. HEENT: Head AT/NC. Buccal mucosa is moist and pink. NECK: No jugular venous distention. No thyroid enlargement. There is no lymphadenopathy. HEART: RRR with grade 2 systolic murmur. LUNGS: Normal inspiratory effort. CTA without w/r/r. ABDOMEN: No guarding or rigidity. Normoactive BS in all four quadrants. Abdomen soft and NT. MSK: No bony gross/deformities throughout. ROM intact. EXTREMITIES: No edema, No peripheral cyanosis. Bilateral lower legs with overall swelling from knees to ankles that is non-pitting in nature and no changes in skin integrity-compression stockings present. Neuro: CN 2-12 grossly intact. No focal neuro deficits PSYCHIATRIC: Normal affect. Eye contact is good. Speech is normal rate and content. Responses are appropriate. Results & Data Results & Data Vital Signs (Past 12 Hours) Vital Signs Temp Pulse Resp BP Pulse Ox Pulse Ox O2 Del Method 02/23/25 11:37 95 02/23/25 08:00 Nasal Cannula 02/23/25 07:00 36.6 C 76 18 143/77 H 97 Nasal Cannula O2 Flow Rate O2 Flow Rate 02/23/25 11:37 0 02/23/25 08:00 3 02/23/25 07:00 3 Laboratory Results Labs reviewed: CBC, BMP PG Care Time/CCT Total # of Minutes Spent Total Time Spent with Patient: Total time spent is greater than 50% in coordination of care (as documented) at patient's floor/unit and/or counseling patient: Coding Level of Care Code 73640 SUB INP/OBS CARE 2/35MIN Diagnoses Acute UTI N39.0 Morbid obesity with BMI of 50.0-59.9, adult E66.01; Z68.43 Lymphedema I89.0 Stage 3b chronic kidney disease N18.32 Chronic kidney disease stage 3 subtype: stage 3b (GFR 30-44) Hypertension I10 Hyperlipidemia E78.5 Bipolar disorder F31.9 Anxiety F41.9 Acid reflux K21.9 (4) CKD (chronic kidney disease) stage 3, GFR 30-59 ml/min Chronic kidney disease stage 3 subtype: stage 3b (GFR 30-44) Qualified Code(s): N18.32 - Chronic kidney disease, stage 3b"
[2025-02-23] MEDS: cefTRIAXone SODIUM 2,000 MG/50 ML BAG IV SCH (15:02)
[2025-02-23] MEDS: MELATONIN 3 MG TAB PO PRN (21:38)
[2025-02-23 22:13] VITALS: RESP 18
[2025-02-24 07:42] VITALS: O2SAT 92
--- NOTE | 2025-02-24 09:19 | Electrocardiogram Report ---
Test Reason : Blood Pressure : */* mmHG Vent. Rate : 81 BPM Atrial Rate : 81 BPM P-R Int : 168 ms QRS Dur : 86 ms QT Int : 372 ms P-R-T Axes : 9 23 25 degrees QTcB Int : 432 ms Normal sinus rhythm Cannot rule out Anterior infarct , age undetermined Abnormal ECG When compared with ECG of 16-Nov-2024 15:27, Criteria for Inferior infarct are no longer Present T wave inversion no longer evident in Inferior leads Confirmed by Julio C Tubbs ([id number]) on 02/24/2025 9:18:54 AM Referred By: REFERRED SELF Confirmed By: Julio C Tubbs
[2025-02-24 14:57] VITALS: BP 146/85; PULSE 90; TEMP 98.4
--- NOTE | 2025-02-24 15:33 | Discharge Summary ---
"Discharge Summary Date of Service February 24, 2025 Principal Dx & Hospital Course #1 = Principal Diagnosis (1) Acute UTI: (2) Morbid obesity with BMI of 50.0-59.9, adult: (3) Lymphedema: (4) CKD (chronic kidney disease) stage 3, GFR 30-59 ml/min: (5) Hypertension: (6) Hyperlipidemia: (7) Bipolar disorder: (8) Anxiety: (9) Acid reflux: Plan Patient is a 64-year-old female with past medical history of bipolar disorder, h yperlipidemia, hypertension, vestibular schwannoma, impaired fasting glucose, essential tremor bilateral hands, chronic kidney disease stage III, lymphedema, and vitamin D deficiency that presented to the [facility] emergency department this morning status post with complaints of a mechanical fall. She has had complaints of generalized weakness and has been diagnosed with a UTI per emergency department workup. Lab work unremarkable in emergency department. ##UTI|weakness -admitted to med/surg -CBC without leukocytosis -UA with 1+blood, 3+ leuks, >50WBCs, 4+ bacteria, UC with contamination -in setting of weakness patient treated with 3 IV doses of Ceftriaxone ##Reported low oxygen saturations not tachycardic, without f/c, with normal chest xray, no PE on chest CTA, endorses RENDON with climbing multiple flights of steps with no anginal equivalent symptoms -she is not on oxygen therapy at baseline at home -O2 saturations on room air during hospitalization in low to mid 90s -TTE with LVEF 60-65%, normal diastolic function, no significant valvular heart disease, mild triscupid regurg -possible sleep study in setting of BMI 51, recommended for outpatient follow up with PCP ##HTN|HLD -cont ARB/statin ##Bipolar disorder|Anxiety -cont gabapentin, ativan, hydroxyzine, imipramine, olanzapine, valbenazine ##CKD stage 3 -Cr 1.20 -monitor outpatient on d/c ##Lymphedema -elevate legs at hs -compression stockings during waking hours ##GERD -cont home PPI Disposition: d/c to [facility] for rehab CODE STATUS: FULL CODE after lengthy discussion with patient regarding wishes Notes For Next Care Provider Recommending outpatient sleep study and possible GLP1/GIP in setting of morbid obesity and deconditioning requiring inpatient SNF Endorsed RENDON without anginal equivalent symptoms with normal TTE Medication Changes From Visit No medication changes Admission HPI Per Admitting Provider Patient is a 64-year-old female with past medical history of bipolar disorder, hyperlipidemia, hypertension, vestibular schwannoma, impaired fasting glucose, essential tremor bilateral hands, chronic kidney disease stage III, lymphedema, and vitamin D deficiency that presented to the [facility] emergency department this morning status post with complaints of a mechanical fall. She landed directly onto her buttocks and has no c/o cervical, thoracic or lumbar pain. She currently lives with her son and he was helping her put a jacket on and they subsequently both fell backwards. She denies pre-syncope or syncope. States she has fallen a few times over the past year as she felt weak in her legs and for mechanical reasons. She was transported to the emergency department via EMS. Reports that her oxygen saturation per EMS on arrival to her home was in the high 80s. On arrival to the emergency department her oxygen saturations were without a hypoxic state. She was maintained on nasal cannula at 2-3LPM, then subsequently weaned onto room air with favorable oxygen saturations in the mid 90s. Her son states at home he will occasionally check her oxygen saturation as she is short of breath at times when she climbs several flights of steps to get into their home. He has noticed occasional readings in the high 80s, however this has been happening for quite some time. She has no anginal equivalent symptoms and denies resting SOB, orthopnea, palpitations, or chest pain. She recently started taking Primidone per [place] neurology for an essential tremor. She also was started on Oxybutynin for overactive bladder symptoms. She currently denies LUTS. She does not smoke tobacco and does not use ETOH. At baseline, she does not use any assistive devices at home to ambulate. Discharge Exam GENERAL APPEARANCE: A&O. Sitting in chair. NAD. SKIN: Normal color without rashes or lesions. Normal turgor. HEENT: Head AT/NC. Buccal mucosa is moist and pink. NECK: No jugular venous distention. No thyroid enlargement. There is no lymphadenopathy. HEART: RRR with grade 2 systolic murmur. LUNGS: Normal inspiratory effort. CTA without w/r/r. ABDOMEN: No guarding or rigidity. Normoactive BS in all four quadrants. Abdomen soft and NT. MSK: No bony gross/deformities throughout. ROM intact. EXTREMITIES: No edema, No peripheral cyanosis. Bilateral lower legs with overall swelling from knees to ankles that is non-pitting in nature and no changes in skin integrity. Neuro: CN 2-12 grossly intact. No focal neuro deficits PSYCHIATRIC: Normal affect. Eye contact is good. Speech is normal rate and content. Responses are appropriate. Discharge Plan Discharge Items Patient Disposition: Transfer Long-Term Fac Reason For Visit: UTI, WEAKNESS Discharge Diagnosis: UTI Condition on Discharge: Good Activity: Resume your previous activity Bathing: No limitations Driving/Machine Use: No limitations Weightbearing: Full weightbearing Non-emergency contact: Primary Care Provider Call non-emergency contact if: you have any medication questions, your symptoms worsen, your pain is not controlled, your pain is unusual for you and you have a fever Follow-up/Referrals: Bibi Lazar CRNP [Primary Care Provider] - (Please follow up within in 1-2 weeks of discharge) Diet: Heart Healthy Addtl Attending Provider Instructions: Rosemary, You were admitted to the hospital for a urinary tract infection and weakness. You received three doses of IV antibiotic while you were hospitalized. Due to some of your weakness it is being recommended you continue with rehab upon discharge. Please follow up with your family doctor after you are discharged from rehab. It is being recommended you have an outpatient sleep study for possible sleep apnea. It was reported you had a low oxygen level when you were transported by ambulance to the hospital, but your oxygen numbers have been stable while you have been in the hospital. You had an echocardiogram to evaluate the function and structures of your heart that were normal. Medications: Your medication list has been reviewed and reconciled upon discharge to ensure accuracy and continuity of care. An updated list of all your medications is included with your hospital discharge paperwork. Please review this list closely, and make note of any changes. Take your medications as instructed; do not skip a dose of your medicines. Make sure all of your doctors know every medicine you are taking (including gmna-pru-dfazdvx medicines, vitamins, and supplements). Call your primary care provider before taking any new medicines (including over- the-counter medicines, vitamins, and supplements), because some of these may interact with your current medications, or may make your symptoms worse. Tell your primary care provider if you cannot afford your medications. Activity: You can do normal everyday activities as your body allows. Take rest breaks if you feel tired. Do not overexert. Stop activity if you have pain, shortness of breath or feel dizzy. Follow-up appointments: Make an appointment with your primary care physician within one week of discharge. A copy of this summary will be sent to them. Every time you see your primary care physician, or any other doctor, bring your medication list, and a list of questions. CONTACT YOUR PRIMARY CARE PROVIDER if you experience any of the following: Shortness of breath or difficulty breathing Fevers or chills Feeling tired with normal activity or experiencing dizziness or fainting Difficulty following your treatment plan, or difficulty taking medications CALL 911 OR GO TO THE EMERGENCY DEPARTMENT if you experience any of the following: Severe abdominal pain or nausea/vomiting Severe chest pain, or chest pain that radiates (moves) to your jaw or arm Sudden, severe shortness of breath or difficulty breathing Thank you for allowing us to participate in your care. Pending Studies at Discharge: No Stand-Alone Forms: My [facility] Skilled Items Patient informed of condition?: Yes DNR: No Discharge Level of Care: Skilled Communicable Disease: No Discharge Prognosis: Improving Lines: None Urinary Catheter: No Medications and DC Order Prescriptions: Continued esomeprazole magnesium [Nexium] 40 mg capsule,delayed release(DR/EC) 40 mg PO HS Qty: 90 3RF atorvastatin 20 mg tablet 20 mg PO HS Qty: 90 3RF oxybutynin chloride 5 mg tablet extended release 24hr 5 mg PO HS Qty: 30 3RF losartan 100 mg tablet 100 mg PO HS Qty: 90 3RF imipramine HCl 50 mg tablet 50 mg PO HS olanzapine [Zyprexa] 5 mg tablet 5 mg PO HS hydroxyzine HCl 25 mg tablet 25 mg PO HS gabapentin 600 mg tablet 600 mg PO HS primidone 50 mg tablet 25 mg PO BID Qty: 30 2RF Ingrezza 40 mg capsule 40 mg PO DAILY lorazepam 1 mg tablet 1 mg PO BID Rx Instructions: 1 mg PO May take 2-1/2 tablets total during the day PRN; Metamucil 3.4 gram/5.4 gram Powder 2 tbsp PO HS hydrocortisone [Proctosol HC] 2.5 % cream with perineal applicator 1 applic topical DAILY PRN (Reason: hemorrhoids) Rx Instructions: Apply a small amount to external hemorrhoids topically daily PRN; cholecalciferol (vitamin D3) 1,250 mcg (50,000 unit) capsule 50,000 unit PO WK Rx Instructions: WEDNESDA[facility] albuterol sulfate 90 mcg/actuation HFA aerosol inhaler 1 inh inhalation Q6H PRN (Reason: shortness of breath or wheezing) Qty: 6.7 0RF Discharge Orders: Discharge Order (Routine); Ordered 02/24/25 Ordered By: Micheline Mckeon/Other Patient Handouts: Urinary Tract Infections in Women Admission Data Admit Date/Time: 02/22/25 16:28 Attending Provider: Tate Vail Admit Provider: Tate Vail Primary Care Provider: Bibi Lazar Other Providers: Tate Vail; [facility] Other Interventions: Discharge Summary Assessment (RN) Last Done: 02/24/25 14:49 Hospital Stay Data Consultations 02/22/25 14:56 ED Decision to Admit Stat Diagnostic Imagining Performed 02/22/25 12:41 CT angio chest PE protocol Stat Pending Results Patient Have Any Pending Studies at Discharge: No Discharge Instructions Given to Patient (Per Discharging Provider) Rosemary, You were admitted to the hospital for a urinary tract infection and weakness. You received three doses of IV antibiotic while you were hospitalized. Due to some of your weakness it is being recommended you continue with rehab upon discharge. Please follow up with your family doctor after you are discharged from rehab. It is being recommended you have an outpatient sleep study for possible sleep apnea. It was reported you had a low oxygen level when you were transported by ambulance to the hospital, but your oxygen numbers have been stable while you have been in the hospital. You had an echocardiogram to evaluate the function and structures of your heart that were normal. Medications: Your medication list has been reviewed and reconciled upon discharge to ensure accuracy and continuity of care. An updated list of all your medications is included with your hospital discharge paperwork. Please review this list closely, and make note of any changes. Take your medications as instructed; do not skip a dose of your medicines. Make sure all of your doctors know every medicine you are taking (including hapb-wfy-anmllwv medicines, vitamins, and supplements). Call your primary care provider before taking any new medicines (including over- the-counter medicines, vitamins, and supplements), because some of these may interact with your current medications, or may make your symptoms worse. Tell your primary care provider if you cannot afford your medications. Activity: You can do normal everyday activities as your body allows. Take rest breaks if you feel tired. Do not overexert. Stop activity if you have pain, shortness of breath or feel dizzy. Follow-up appointments: Make an appointment with your primary care physician within one week of discharge. A copy of this summary will be sent to them. Every time you see your primary care physician, or any other doctor, bring your medication list, and a list of questions. CONTACT YOUR PRIMARY CARE PROVIDER if you experience any of the following: Shortness of breath or difficulty breathing Fevers or chills Feeling tired with normal activity or experiencing dizziness or fainting Difficulty following your treatment plan, or difficulty taking medications CALL 911 OR GO TO THE EMERGENCY DEPARTMENT if you experience any of the following: Severe abdominal pain or nausea/vomiting Severe chest pain, or chest pain that radiates (moves) to your jaw or arm Sudden, severe shortness of breath or difficulty breathing Thank you for allowing us to participate in your care. Supervising Physician Co-Signing Physician Notes During face to face encounter, I obtained a brief physical examination, discussed hospital stay with patient and discharge instructions with patient. I discussed discharge plan of care with CARRINGTON Tee. I reviewed above note and agree with it except for the following: Patient completed 3 days course of IV rocephin which would trest uncomplicated UTI. Patient to be discharged. Total Time Total Time Spent Total Time Spent (In Minutes): I spent a total of 40 minutes on the date of service in review of patient's record, and previously obtained information in person and appropriate medical visit, discussion and education of plan, with patient and/or caregiver, placing orders for tests/referral/procedures as medically necessary and documentation of pertinent clinical information in patient's medical records for their visit today. Coding Level of Care Code 52298 INP/OBS DISCH >30 MIN Diagnoses Acute UTI N39.0 Morbid obesity with BMI of 50.0-59.9, adult E66.01; Z68.43 Lymphedema I89.0 Stage 3b chronic kidney disease N18.32 Chronic kidney disease stage 3 subtype: stage 3b (GFR 30-44) Hypertension I10 Hyperlipidemia E78.5 Bipolar disorder F31.9 Anxiety F41.9 Acid reflux K21.9"
== END 2025-02-24 17:38 | DRG 690 ==
LOC: ED 10:18 → INTOOBSV 16:28 → 3W 16:28